=== PATIENT | male | born 1975 | race Two or more races ===

== ENCOUNTER 2017-03-06 23:27 | Emergency (ER) | payer OTHER ==
--- NOTE | ~2017-03-06 | CR141 ---
[facility] A Service of [facility] & [facility] RADIOLOGY TEXT RESULTS PATIENT: TRAY XAVIER LOCATION: SED : 71 UNIT #: [id number] AGE: [address]: Forrest Pichardo SEX: M ORDER DR: [id number] [place] [id number] MR#: [id number] Acc #: [id number] NAME: TRAY XAVIER : 1975 SEX: M STUDY DATE/TIME: 03/07/2017 UNIT: SED ROOM: STUDY DESCRIPTION: CR Hand Min 3 Views Lt Attending Physician: Forrest Pichardo P.A.-C. Ordering Physician: Forrest Pichardo P.A.-C. Primary Care Physician: Constantin Tinoco M.D. MEDICAL IMAGING REPORT This report is preliminary unless electronic signature is present. EXAM Left hand, 03/07/2017 INDICATION Hand laceration tonight about 1 hour ago. Patient caught hand on glass and has pain. Possible foreign body. FINDINGS 3 views of the left hand were obtained. No fracture or malalignment is seen. No radiopaque foreign bodies. IMPRESSION Negative left hand. No radiopaque foreign bodies. Dictated by... Carlos Aldridge Jr., M.D. THIS IS AN ELECTRONICALLY VERIFIED REPORT Carlos Aldridge Jr., M.D. at 03/07/2017 6:24 AM TRUPTI/pacheco TD: 03/07/2017 00:47 JOB #: [id number] MEDICAL IMAGING REPORT Page 1 of 1
[~2017-03-06 23:27] MED LIST: ANTIBIOTIC; ASPIRIN81 MG PO; FLEXERIL10 MG PO; KEFLEX500 M1 PO; LORTAB 10/500 T1 TAB PO; LORTAB 5-325 M1 EACH PO; MIRALAX255 GM PO; NAPROXEN500 M1 PO; NO MEDICATIONS; VICODIN 5/1 TAB 5/50
== END 2017-03-07 01:27 | disposition home or self-care (01) ==
LOC: SED 23:27
DX: S61.412A Laceration without foreign body of left hand, initial encounter (principal); Z23 Encounter for immunization; F17.200 Nicotine dependence, unspecified, uncomplicated; W25.XXXA Contact with sharp glass, initial encounter; Y92.9 Unspecified place or not applicable
CPT/HCPCS: 12001; 73130; 90471; 90715; 99283

== ENCOUNTER 2017-06-07 16:22 | Emergency (ER) | payer SELFPAY | END 2017-06-07 18:00 | disposition home or self-care (01) | LOC: SED 16:22 | DX: S61.213A Laceration without foreign body of left middle finger without damage to nail, initial encounter (principal); S61.215A Laceration without foreign body of left ring finger without damage to nail, initial encounter; S61.217A Laceration without foreign body of left little finger without damage to nail, initial encounter; F17.200 Nicotine dependence, unspecified, uncomplicated; W26.0XXA Contact with knife, initial encounter; Y92.009 Unspecified place in unspecified non-institutional (private) residence as the place of occurrence of the external cause | CPT/HCPCS: 12001; 99283 ==